=== PATIENT | female | born 1960 | race Caucasian/White ===

== ENCOUNTER 2019-11-09 10:29 | Outpatient (CLI) | payer OTHER, SELFPAY ==
[2019-11-09 11:07] LABS: Hematocrit 38.5 % (37.0-47.0); Hemoglobin 12.6 g/dL (12.0-15.0); Mean Corpuscular HGB Conc 32.7 g/dl (32-36); Mean Corpuscular Hemoglobin 30.7 pg (26-34); Mean Corpuscular Volume 93.7 fl (80-100); Mean Platelet Volume 8.8 fl (7.4-10.4); Platelet Count Result 300 k/mm3 (150-375); Red Blood Count 4.11 M/mm3 (4.2-5.4); Red Cell Distribution Width 12.1 % (11.5-14.5); White Blood Count 3.3 K/mm3 (4.5-10.0)
[2019-11-09 11:20] LABS: Alanine Aminotransferase 34 U/L (4-35); Alkaline Phosphatase 71 U/L (38-126); Aspartate Amino Transferase 34 U/L (14-36); Bilirubin,Total 0.6 mg/dL (0.2-1.3); Blood Urea Nitrogen 14 mg/dL (7-17); Calcium 9.1 mg/dL (8.4-10.2); Carbon Dioxide 30 mmol/L (22-30); Chloride 96 mmol/L (98-107); Cholesterol 165 mg/dL (0-200); Estimated Glomerular Filt Rate > 60; Glucose 139 mg/dL (65-105); HDL Direct 57 mg/dL; Potassium 4.5 mmol/L (3.4-5.0); Sodium 134 mmol/L (137-145); Triglycerides 59 mg/dL (<150)
[2019-11-09 11:37] LABS: LDL Cholesterol Direct 90 mg/dL
[2019-11-09 11:50] LABS: Free T4 Free Thyroxine 1.34 ng/mL (0.78-2.19); Vitamin D 25 Hydroxy 89.2 ng/mL
[2019-11-09 11:53] LABS: Thyroid Stimulating Hormone 0.153 uIU/mL (0.465-4.680)
[2019-11-09 12:24] LABS: Creatinine Urine 46.9 mg/dL
[2019-11-09 12:28] LABS: Folic Acid 16.3 ng/mL (2.76->20)
[2019-11-09 12:43] LABS: MALB Creatinine Ratio < 12.8 mg/g (0-30); Microalbumin Urine Random < 6.0 mg/L (0-16.7)
== END 2019-11-09 10:30 | disposition home or self-care (01) ==
PROVIDERS: PCP Internal Medicine; Visit Provider Internal Medicine
DX: R53.83 Other fatigue (principal); E11.9 Type 2 diabetes mellitus without complications; E03.9 Hypothyroidism, unspecified; E55.9 Vitamin D deficiency, unspecified
CPT/HCPCS: 36415; 80053; 80061; 82043; 82306; 82607; 82746; 84439; 84443; 85027

== ENCOUNTER 2019-11-28 14:59 | Outpatient (CLI) | payer OTHER, SELFPAY ==
--- NOTE | ~2019-11-28 | MM_ITS ---
EXAMINATION: MM screening ladonna RT w flaquito HISTORY: Screening mammogram TECHNIQUE: Rotated lateral cc view of right breast. Craniocaudal and mediolateral oblique 3-D tomosyn thesis images were obtained and synthetic 2-D images were generated. CAD analysis was submitted and i nterpreted. COMPARISON: 11/22/2018, 10/01/2015, 08/17/2013 right digital screening mammogram examinations BREAST PARENCHYMAL COMPOSITION: The breasts are extremely dense, which lowers the sensitivity of mamm ography. FINDINGS: There is a biopsy marker in the lower inner quadrant of the right breast; history of prior benign right breast biopsy. History of left mastectomy in 2002 for left breast cancer. Right breast reduction surgery in 2002. There is suggestion of architectural distortion in the outer right breast on rotated lateral cranioca udal view at mid breast depth. Diagnostic right mammogram is recommended, with ultrasound. Otherwise there is no evidence of suspicious mass, calcification, or architectural distortion to sugg est malignancy in either breast. There has been no other suspicious interval change of the right [address]. IMPRESSION: 1. Architectural distortion suggested in the outer right breast at mid depth on rotated lateral cc vi ew. 2. Diagnostic right mammogram and right breast ultrasound examination are recommended. BI-RADS Category 0: Incomplete: Needs additional imaging evaluation. Reviewed, dictated and finalized at location A. IMPRESSION: 1. Architectural distortion suggested in the outer right breast at mid depth on rotated lateral cc view. 2. Diagnostic right mammogram and right breast ultrasound examination are recom mended. BI-RADS Category 0: Incomplete: Needs additional imaging evaluation.
== END 2019-11-28 15:00 | disposition home or self-care (01) ==
LOC: ANHIMG 15:02
PROVIDERS: PCP Internal Medicine; Visit Provider Nurse Practitioner
DX: Z12.31 Encounter for screening mammogram for malignant neoplasm of breast (principal); R92.8 Other abnormal and inconclusive findings on diagnostic imaging of breast
CPT/HCPCS: 77063; 77067

== ENCOUNTER 2019-12-05 11:50 | Outpatient (CLI) | payer OTHER, SELFPAY ==
--- NOTE | ~2019-12-05 | MMUS_ITS ---
EXAMINATION: MM diagnostic mammo unilat RT, US breast RT limited HISTORY: Possible architectural distortion of the right breast on screening mammogram TECHNIQUE: Additional 3-D tomosynthesis images of the right breast were performed and synthetic 2-D i mages were generated. CAD analysis was submitted and interpreted. High resolution limited right breas t ultrasound was performed. COMPARISON: 11/28/2019, 11/12/2018, 10/01/2015, 08/17/2013 FINDINGS: MAMMOGRAPHIC FINDINGS: No persistent architectural distortion is identified with spot compression of the breast. There is a return to baseline fibroglandular appearance. ULTRASOUND: There is no evidence of focal abnormal solid or cystic lesion in the vicinity of the the mammographic finding in question. IMPRESSION: 1. No mammographic or sonographic evidence of malignancy. 2. Recommend routine screening mammography in one year. BI-RADS Category 1: Negative Reviewed, dictated and finalized at location A. IMPRESSION: 1. No mammographic or sonographic evidence of malignancy. 2. Recommend routine screening mammography in one year. BI-RADS Category 1: Negative
== END 2019-12-05 11:51 | disposition home or self-care (01) ==
PROVIDERS: PCP Internal Medicine; Visit Provider Obstetrics & Gynecology Gynecology
DX: R92.8 Other abnormal and inconclusive findings on diagnostic imaging of breast (principal)
CPT/HCPCS: 76642; 77065

== ENCOUNTER 2020-01-09 15:09 | Outpatient (CLI) | payer OTHER, SELFPAY ==
[2020-01-09 16:27] LABS: Calcium 9.6 mg/dL (8.4-10.2)
[2020-01-09 16:32] LABS: Creatinine Urine 28.8 mg/dL
[2020-01-09 16:57] LABS: Thyroid Stimulating Hormone 0.203 uIU/mL (0.465-4.680)
[2020-01-09 17:15] LABS: Free T4 Free Thyroxine 1.58 ng/mL (0.78-2.19)
[2020-01-13 13:50] LABS: Parathyroid Intact 45 pg/mL (14-64)
== END 2020-01-09 15:10 | disposition home or self-care (01) ==
PROVIDERS: PCP Internal Medicine; Visit Provider Internal Medicine Endocrinology, Diabetes & Metabolism
DX: E03.9 Hypothyroidism, unspecified (principal); E10.65 Type 1 diabetes mellitus with hyperglycemia; R79.89 Other specified abnormal findings of blood chemistry
CPT/HCPCS: 36415; 82310; 82570; 83970; 84439; 84443

== ENCOUNTER 2020-01-12 15:01 | Outpatient (CLI) | payer OTHER, SELFPAY ==
[2020-01-12 17:26] LABS: Parathyroid Intact 23.9 pg/mL (7.5-53.5)
[2020-01-16 03:23] LABS: Ionized Calcium 5.4 mg/dL (4.8-5.6)
[2020-01-17 12:09] LABS: Total Volume 4500 mL; Urine Calcium 7.6 mg/dL
== END 2020-01-12 15:02 | disposition home or self-care (01) ==
LOC: ANHLAB 02-03 15:01
PROVIDERS: PCP Internal Medicine; Visit Provider Internal Medicine Endocrinology, Diabetes & Metabolism
DX: R79.89 Other specified abnormal findings of blood chemistry (principal); E03.9 Hypothyroidism, unspecified; E10.65 Type 1 diabetes mellitus with hyperglycemia; E83.52 Hypercalcemia; Z85.3 Personal history of malignant neoplasm of breast; E55.9 Vitamin D deficiency, unspecified
CPT/HCPCS: 36415; 82330; 82340; 83970

== ENCOUNTER 2020-01-18 12:48 | Outpatient (CLI) | payer OTHER, SELFPAY ==
--- NOTE | ~2020-01-18 | DEXA_ITS ---
Bone Density Report Name: Rosa Elena Mcdowell Age: 59 Sex: Female Ethnicity: White Date of : 1960 Indication: postmenopausal osteoporosis; monitoring treatment; height loss; prior fracture; cancer; Referring Provider: Abigail Castorena Study: Bone densitometry was performed. Exam Date: January 18, 2020 Accession number: [id number] Bone Density: Region BMD T-score Z-score Classification AP Spine (L1-L4) 0.663 -3.5 -2.2 Osteoporosis Femoral Neck (Left) 0.622 -2.0 -0.8 Osteopenia Total Hip (Left) 0.710 -1.9 -1.0 Osteopenia Total Hip Bilateral Avg 0.706 -2.0 -1.1 Osteopenia Femoral Neck (Right) 0.625 -2.0 -0.8 Osteopenia Total Hip (Right) 0.701 -2.0 -1.1 Osteopenia World Health Organization criteria for BMD impression classify patients as: Normal (T-score at or above -1.0), Osteopenia (T-score between -1.0 and -2.5), or Osteoporosis (T-score at or below -2.5). 10-year Fracture Risk: FRAX not reported because: Some T-score for Spine Total or Hip Total or Femoral Neck at or below -2.5 Treated for osteoporosis Previous Exams: Region Exam Age BMD T-score BMD Change BMD Change Date g/cm2 vs Baseline vs Previous AP Spine(L1-L4) 01/18/2020 59 0.663 -3.5 -0.097(-12.8%) -0.054(-7.5%)* 11/12/2018 58 0.717 -3.0 -0.043(-5.6%)# -0.095(-11.7%) 10/01/2015 55 0.811 -2.1 0.052(6.8%)# 0.009(1.1%)# 07/21/2012 51 0.803 -2.2 0.043(5.7%)# -0.036(-4.2%)# 06/04/2011 50 0.838 -1.9 0.079(10.4%)* 0.079(10.4%)* 01/12/2008 47 0.760 -2.6 Total Hip(Left) 01/18/2020 59 0.710 -1.9 0.009(1.3%)# 0.000(-0.1%) 11/12/2018 58 0.711 -1.9 0.009(1.3%)# -0.033(-4.5%)* 10/01/2015 55 0.744 -1.6 0.043(6.1%)# 0.004(0.5%)# 07/21/2012 51 0.740 -1.7 0.039(5.5%)# -0.011(-1.5%)# 06/04/2011 50 0.752 -1.6 0.050(7.2%)* 0.050(7.2%)* 01/12/2008 47 0.701 -2.0 Total Hip(Right) 01/18/2020 59 0.701 -2.0 -0.002(-0.3%)# -0.039(-5.3%)* 11/12/2018 58 0.740 -1.7 0.037(5.3%)# -0.020(-2.7%) 10/01/2015 55 0.761 -1.5 0.058(8.2%)# 0.038(5.2%)# 07/21/2012 51 0.723 -1.8 0.020(2.8%)# -0.011(-1.4%)# 06/04/2011 50 0.733 -1.7 0.030(4.3%)* 0.030(4.3%)* 01/12/2008 47 0.703 -2.0 *Denotes significance at 95% confidence level, LSC for AP Spine = 0.022 g/cm2, LSC for Total Hip = 0.027 g/cm2 Clinical Information Provided by Patient: Has had a low trauma fracture Is being treated for osteoporosis Has used the following medications: Reclast (i.e. zoledronate
== END 2020-01-18 12:49 | disposition home or self-care (01) ==
LOC: ANHIMG 12:49
PROVIDERS: PCP Internal Medicine; Visit Provider Internal Medicine Endocrinology, Diabetes & Metabolism
DX: M81.0 Age-related osteoporosis without current pathological fracture (principal); R79.89 Other specified abnormal findings of blood chemistry; M85.89 Other specified disorders of bone density and structure, multiple sites
CPT/HCPCS: 77080

== ENCOUNTER 2020-04-23 08:55 | Outpatient (CLI) | payer OTHER, SELFPAY ==
[2020-04-23 09:41] LABS: Anion Gap 5 mmol/L (8-16); Blood Urea Nitrogen 14 mg/dL (7-17); Calcium 9.1 mg/dL (8.4-10.2); Carbon Dioxide 29 mmol/L (22-30); Chloride 101 mmol/L (98-107); Estimated Glomerular Filt Rate > 60; Glucose 176 mg/dL (65-105); Phosphorus 3.4 mg/dL (2.5-4.5); Potassium 4.3 mmol/L (3.4-5.0); Sodium 135 mmol/L (137-145)
[2020-04-23 09:53] LABS: Parathyroid Intact 78.4 pg/mL (7.5-53.5)
[2020-04-23 10:20] LABS: Vitamin D 25 Hydroxy 55.3 ng/mL
[2020-04-26 07:00] LABS: Collagen Type I C-Telopeptide 333 pg/mL (***); Osteocalcin 16 ng/mL (8-32)
[2020-04-26 07:01] LABS: Creatinine, Random Urine 110 mg/dL (20-275); N-Telopeptide (NTx) 36 (***)
== END 2020-04-23 08:56 | disposition home or self-care (01) ==
PROVIDERS: PCP Internal Medicine; Visit Provider Internal Medicine Endocrinology, Diabetes & Metabolism
DX: E03.9 Hypothyroidism, unspecified (principal); E10.65 Type 1 diabetes mellitus with hyperglycemia; E55.9 Vitamin D deficiency, unspecified; E83.52 Hypercalcemia; R79.89 Other specified abnormal findings of blood chemistry; Z87.898 Personal history of other specified conditions
CPT/HCPCS: 36415; 80069; 82306; 82523; 82570; 83937; 83970; 84439; 84443

== ENCOUNTER 2020-04-24 13:01 | Outpatient (CLI) | payer OTHER, SELFPAY ==
[2020-04-24 13:54] LABS: Creatinine 24 Hour Urine 0.5 gm/24 (0.8-1.8); Creatinine Urine 25.7 mg/dL; Total Volume 24 Hour Urine 2250 ml
[2020-04-27 20:42] LABS: Total Volume 2250 mL; Urine Calcium 2.8 mg/dL
== END 2020-04-24 13:02 | disposition home or self-care (01) ==
PROVIDERS: PCP Internal Medicine; Visit Provider Internal Medicine Endocrinology, Diabetes & Metabolism
DX: E55.9 Vitamin D deficiency, unspecified (principal); M81.0 Age-related osteoporosis without current pathological fracture; R79.89 Other specified abnormal findings of blood chemistry
CPT/HCPCS: 81050; 82340; 82570

== ENCOUNTER 2020-05-09 09:15 | Outpatient (CLI) | payer OTHER, SELFPAY ==
--- NOTE | ~2020-05-09 | NM_ITS ---
EXAMINATION: NM parathyroid w imaging DATE: 05/09/2020 12:58 INDICATION: Hyperparathyroidism. TECHNIQUE: 18.8 mCi Tc99m sestamibi was administered intravenously. Anterior images of the neck were obtained immediately and at 2 hours. SPECT images of the neck were obtained. COMPARISON: None. FINDINGS: There is no focus of persistent activity in the area of the thyroid or mediastinum to sugge st parathyroid adenoma. IMPRESSION: 1. No evidence of a parathyroid adenoma. Reviewed, dictated and finalized at location A.
== END 2020-05-09 09:16 | disposition home or self-care (01) ==
LOC: ANHIMG 09:17
PROVIDERS: PCP Internal Medicine Endocrinology, Diabetes & Metabolism; Visit Provider Internal Medicine Endocrinology, Diabetes & Metabolism
DX: M81.0 Age-related osteoporosis without current pathological fracture (principal); R79.89 Other specified abnormal findings of blood chemistry
CPT/HCPCS: 78070; A9500

== ENCOUNTER 2020-06-01 13:25 | Outpatient (CLI) | payer OTHER, SELFPAY ==
[2020-06-01 14:17] LABS: Anion Gap 4 mmol/L (8-16); Blood Urea Nitrogen 11 mg/dL (7-17); Calcium 9.5 mg/dL (8.4-10.2); Carbon Dioxide 29 mmol/L (22-30); Chloride 101 mmol/L (98-107); Estimated Glomerular Filt Rate > 60; Glucose 244 mg/dL (65-105); Potassium 4.4 mmol/L (3.4-5.0); Sodium 134 mmol/L (137-145)
[2020-06-01 15:26] LABS: Free T4 Free Thyroxine 1.08 ng/mL (0.78-2.19)
[2020-06-06 06:59] LABS: Triiodothyronine T3 Free 2.7 pg/mL (2.3-4.2)
== END 2020-06-01 13:26 | disposition home or self-care (01) ==
LOC: ANHLAB 13:28
PROVIDERS: PCP Internal Medicine; Visit Provider Internal Medicine Endocrinology, Diabetes & Metabolism
DX: E03.9 Hypothyroidism, unspecified (principal); E04.9 Nontoxic goiter, unspecified; M81.0 Age-related osteoporosis without current pathological fracture
CPT/HCPCS: 36415; 80048; 84439; 84443; 84481

== ENCOUNTER 2020-09-04 09:16 | Outpatient (CLI) | payer OTHER, SELFPAY ==
[2020-09-04 09:59] LABS: Alanine Aminotransferase 31 U/L (4-35); Albumin Level 3.7 g/dL (3.5-5.1); Alkaline Phosphatase 54 U/L (38-126); Anion Gap 4 mmol/L (8-16); Aspartate Amino Transferase 34 U/L (14-36); Bilirubin,Total 0.5 mg/dL (0.2-1.3); Blood Urea Nitrogen 12 mg/dL (7-17); Calcium 9.6 mg/dL (8.4-10.2); Carbon Dioxide 33 mmol/L (22-30); Chloride 100 mmol/L (98-107); Cholesterol 167 mg/dL (0-200); Estimated Glomerular Filt Rate > 60; Glucose 98 mg/dL (65-105); HDL Direct 61 mg/dL; Potassium 4.1 mmol/L (3.4-5.0); Sodium 137 mmol/L (137-145); Triglycerides 64 mg/dL (<150)
[2020-09-04 10:10] LABS: LDL Cholesterol Direct 88 mg/dL
[2020-09-04 10:28] LABS: Free T4 Free Thyroxine 1.47 ng/mL (0.78-2.19)
[2020-09-04 10:30] LABS: Thyroid Stimulating Hormone 0.203 uIU/mL (0.465-4.680)
== END 2020-09-04 09:17 | disposition home or self-care (01) ==
PROVIDERS: PCP Internal Medicine; Referring Provider Internal Medicine Endocrinology, Diabetes & Metabolism; Visit Provider Internal Medicine
DX: E03.9 Hypothyroidism, unspecified (principal); E10.65 Type 1 diabetes mellitus with hyperglycemia
CPT/HCPCS: 36415; 80053; 80061; 84439; 84443

== ENCOUNTER 2021-01-18 09:20 | Outpatient (CLI) | payer OTHER, SELFPAY ==
[2021-01-18 10:20] LABS: Creatinine Urine 39.6 mg/dL
[2021-01-18 10:21] LABS: Albumin Level 4.2 g/dL (3.5-5.1); Anion Gap 2 mmol/L (8-16); Blood Urea Nitrogen 8 mg/dL (7-17); Calcium 10.4 mg/dL (8.4-10.2); Carbon Dioxide 32 mmol/L (22-30); Chloride 101 mmol/L (98-107); Estimated Glomerular Filt Rate > 60; Glucose 148 mg/dL (65-105); HDL Direct 72 mg/dL; Potassium 4.2 mmol/L (3.4-5.0); Sodium 135 mmol/L (137-145)
[2021-01-18 10:33] LABS: LDL Cholesterol Direct 76 mg/dL
[2021-01-18 10:36] LABS: Free T4 Free Thyroxine 1.52 ng/mL (0.78-2.19); Vitamin D 25 Hydroxy 72.2 ng/mL
[2021-01-18 10:44] LABS: MALB Creatinine Ratio < 15.2 mg/g (0-30); Microalbumin Urine Random < 6.0 mg/L (0-16.7)
[2021-01-18 10:45] LABS: Parathyroid Intact 59.3 pg/mL (7.5-53.5)
[2021-01-18 10:52] LABS: Thyroid Stimulating Hormone 0.041 uIU/mL (0.465-4.680); Total Triiodothyronine (T3) 1.43 NG/ML (0.97-1.69)
[2021-01-18 11:27] LABS: Phosphorus 3.4 mg/dL (2.5-4.5)
== END 2021-01-18 09:21 | disposition home or self-care (01) ==
PROVIDERS: PCP Internal Medicine; Visit Provider Internal Medicine Endocrinology, Diabetes & Metabolism
DX: E10.65 Type 1 diabetes mellitus with hyperglycemia (principal); E03.9 Hypothyroidism, unspecified; M81.0 Age-related osteoporosis without current pathological fracture
CPT/HCPCS: 36415; 80069; 82043; 82306; 83718; 83721; 83970; 84439; 84443; 84480

== ENCOUNTER 2021-03-22 12:50 | Outpatient (CLI) | payer OTHER, SELFPAY ==
[2021-03-22 14:16] LABS: Thyroid Stimulating Hormone < 0.015 uIU/mL (0.465-4.680); Total Triiodothyronine (T3) 1.22 NG/ML (0.97-1.69)
[2021-03-22 14:22] LABS: Free T4 Free Thyroxine 1.56 ng/mL (0.78-2.19)
== END 2021-03-22 12:51 | disposition home or self-care (01) ==
LOC: ANHLAB 12:53
PROVIDERS: PCP Internal Medicine; Visit Provider Internal Medicine Endocrinology, Diabetes & Metabolism
DX: E03.9 Hypothyroidism, unspecified (principal); E10.65 Type 1 diabetes mellitus with hyperglycemia; M81.0 Age-related osteoporosis without current pathological fracture
CPT/HCPCS: 36415; 84439; 84443; 84480

== ENCOUNTER 2021-05-24 10:12 | Outpatient (CLI) | payer OTHER, SELFPAY ==
[2021-05-24 11:28] LABS: Albumin Level 4.2 g/dL (3.5-5.1); Anion Gap 3 mmol/L (8-16); Blood Urea Nitrogen 17 mg/dL (7-17); Calcium 9.9 mg/dL (8.4-10.2); Carbon Dioxide 31 mmol/L (22-30); Chloride 102 mmol/L (98-107); Estimated Glomerular Filt Rate > 60; Glucose 127 mg/dL (65-110); Phosphorus 3.5 mg/dL (2.5-4.5); Potassium 4.5 mmol/L (3.4-5.0); Sodium 136 mmol/L (137-145)
[2021-05-24 11:59] LABS: Parathyroid Intact 60.2 pg/mL (7.5-53.5)
[2021-05-24 12:22] LABS: Free T4 Free Thyroxine 0.64 ng/mL (0.78-2.19)
[2021-05-27 21:36] LABS: Creatinine, Random Urine 24 mg/dL (20-275); N-Telopeptide (NTx) 18 (***)
[2021-05-29 12:36] LABS: Osteocalcin 12 ng/mL (8-32)
== END 2021-05-24 10:13 | disposition home or self-care (01) ==
PROVIDERS: PCP Internal Medicine; Visit Provider Internal Medicine Endocrinology, Diabetes & Metabolism
DX: E10.65 Type 1 diabetes mellitus with hyperglycemia (principal); M81.0 Age-related osteoporosis without current pathological fracture; E03.9 Hypothyroidism, unspecified
CPT/HCPCS: 36415; 80069; 82306; 82523; 82570; 83937; 83970; 84439; 84443

== ENCOUNTER → 2021-07-30 13:22 | Outpatient (CLI) | payer OTHER, SELFPAY ==
--- NOTE | ~2021-07-30 | DEXA_ITS ---
Bone Density Report Name: INDIRA ALAS Age: 61 Sex: Female Ethnicity: White Date of : 1960 Indication: postmenopausal; screening for osteoporosis; height loss; Referring Provider: Abigail Castorena Study: Bone densitometry was performed. Exam Date: July 30, 2021 Accession number: [id number] Bone Density: Region BMD T-score Z-score Classification AP Spine (L1-L4) 0.749 -2.7 -1.3 Osteoporosis Femoral Neck (Left) 0.616 -2.1 -0.8 Osteopenia Total Hip (Left) 0.737 -1.7 -0.7 Osteopenia Femoral Neck (Right) 0.638 -1.9 -0.6 Osteopenia Total Hip (Right) 0.733 -1.7 -0.8 Osteopenia Total Hip Mean 0.735 -1.7 -0.8 Osteopenia World Health Organization criteria for BMD impression classify patients as: Normal (T-score at or above -1.0), Osteopenia (T-score between -1.0 and -2.5), or Osteoporosis (T-score at or below -2.5). 10-year Fracture Risk: FRAX not reported because: Some T-score for Spine Total or Hip Total or Femoral Neck at or below -2.5 Clinical Information Provided by Patient: Has used the following medications: Vitamin D, Calcium Patient maximum height was 65.75 Menopause Age: 56 Drinks caffeinated beverages Onset of menses at age 13 Number of children 4 Impression: The patient has osteoporosis, based on the Total Spine T-score. Discussion: INCREASED RISK OF FRACTURE. BONE DENSITY IS UNDESIRABLY LOW AT ONE OR MORE SKELETAL SITES, CONSISTENT WITH POSTMENOPAUSAL OSTEOPOROSIS. This patient's lowest T-score meets the World Health Organization's (WHO) criteria for osteoporosis at one or more sites (T-score -2.5 or below). In untreated patients, the risk of osteoporotic fracture increases approximately two-fold for each 1.0 SD decrease in T-score. Low bone density is not the only risk factor for fracture; also consider factors such as patient's age, frailty or poor health, risk of falling, risk of injury, previous osteoporotic fracture, family history of osteoporosis, cigarette smoking, low body weight, etc. Not everyone with low bone mineral density has osteoporosis; osteomalacia and other metabolic bone disorders should also be considered. Patients who have osteoporosis should be evaluated for specific diseases and conditions (secondary causes) that may cause or contribute to bone loss. The [place] [employer] Endocrinologists (AACE) and National Osteoporosis Foundation (NOF) recommend pharmacologic intervention for all postmenopausal women whose T-score is in this range. The patient should follow a healthful lifestyle (good nutrition with adequate calcium and vitamin D, and appropriate weight-bearing exercise). Follow-Up: Consider a repeat BMD and Vertebral Fracture Assessment (VFA) exam in 2 years or sooner if medically necessary, to reassess this patient's status. Reported by: [facility]
--- NOTE | ~2021-07-30 | MM_ITS ---
EXAMINATION: MM screening ladonna RT w flaquito HISTORY: Screening right mammogram, history of left mastectomy, family history of breast cancer in he r sister. TECHNIQUE: Craniocaudal and mediolateral oblique 3-D tomosynthesis images were obtained and synthetic 2-D images were generated. CAD analysis was submitted and interpreted. COMPARISON: 12/05/2019, 11/28/2019, 11/12/2018, 10/01/2015 BREAST PARENCHYMAL COMPOSITION: The breast is extremely dense, which lowers the sensitivity of mammog denise. FINDINGS: There is no evidence of suspicious mass, calcification, or architectural distortion to sugg est malignancy. There has been no suspicious interval change. IMPRESSION: 1. No mammographic evidence of malignancy. 2. Recommend routine screening mammography in one year. BI-RADS Category 1: Negative Reviewed, dictated and finalized at location A. CONDITIONING MANAGER
== END ==
PROVIDERS: PCP Internal Medicine; Visit Provider Internal Medicine Endocrinology, Diabetes & Metabolism
DX: Z12.31 Encounter for screening mammogram for malignant neoplasm of breast (principal); M81.0 Age-related osteoporosis without current pathological fracture; M85.852 Other specified disorders of bone density and structure, left thigh; M85.851 Other specified disorders of bone density and structure, right thigh
CPT/HCPCS: 77063; 77067; 77080

== ENCOUNTER 2021-08-08 11:41 | Outpatient (CLI) | payer OTHER, SELFPAY ==
[2021-08-08 12:34] LABS: Free T4 Free Thyroxine 0.79 ng/mL (0.78-2.19)
== END 2021-08-08 11:42 | disposition home or self-care (01) ==
LOC: ANHLAB 11:44
PROVIDERS: PCP Internal Medicine; Visit Provider Internal Medicine Endocrinology, Diabetes & Metabolism
DX: E03.9 Hypothyroidism, unspecified (principal); E10.65 Type 1 diabetes mellitus with hyperglycemia; M81.0 Age-related osteoporosis without current pathological fracture; R79.89 Other specified abnormal findings of blood chemistry
CPT/HCPCS: 36415; 84439; 84443

== ENCOUNTER 2022-12-26 07:44 | Outpatient (CLI) | payer BC, SELFPAY ==
--- NOTE | ~2022-12-26 | MM_ITS ---
EXAMINATION: MM screening ladonna RT w flaquito HISTORY: Screening right mammogram history of left mastectomy TECHNIQUE: Craniocaudal and mediolateral oblique 3-D tomosynthesis images were obtained and synthetic 2-D images were generated. CAD analysis was submitted and interpreted. COMPARISON: 07/30/2021, 12/05/2019, 11/28/2019, 11/22/2018 BREAST PARENCHYMAL COMPOSITION: The breast is extremely dense, which lowers the sensitivity of mammog denise. FINDINGS: No suspicious mass, calcification, or architectural distortion are identified to suggest ma lignancy. There has been no suspicious interval change.. IMPRESSION: 1. No mammographic evidence of malignancy. 2. Recommend routine screening mammography in one year. BI-RADS Category 1: Negative Reviewed, dictated and finalized at location A.
== END 2022-12-26 07:45 | disposition home or self-care (01) ==
PROVIDERS: PCP Internal Medicine; Visit Provider Nurse Practitioner
DX: Z12.31 Encounter for screening mammogram for malignant neoplasm of breast (principal)
CPT/HCPCS: 77063; 77067

== ENCOUNTER → 2023-11-06 11:04 | Outpatient (CLI) | payer BC, SELFPAY ==
--- NOTE | ~2023-11-06 | DEXA_ITS ---
Bone Density Report Name: INDIRA ALAS Age: 63 Sex: Female Ethnicity: White Date of : 1960 Indication: postmenopausal osteoporosis; height loss; secondary osteoporosis; Referring Provider: Abigail Castorena Study: Bone densitometry was performed. Exam Date: November 06, 2023 Accession number: [id number] Bone Density: Region BMD T-score Z-score Classification AP Spine (L1-L4) 0.709 -3.1 -1.5 Osteoporosis Femoral Neck (Left) 0.612 -2.1 -0.8 Osteopenia Total Hip (Left) 0.731 -1.7 -0.7 Osteopenia Femoral Neck (Right) 0.609 -2.2 -0.8 Osteopenia Total Hip (Right) 0.680 -2.1 -1.1 Osteopenia Total Hip Mean 0.706 -1.9 -0.9 Osteopenia World Health Organization criteria for BMD impression classify patients as: Normal (T-score at or above -1.0), Osteopenia (T-score between -1.0 and -2.5), or Osteoporosis (T-score at or below -2.5). 10-year Fracture Risk: FRAX not reported because: Some T-score for Spine Total or Hip Total or Femoral Neck at or below -2.5 Previous Exams: Region Exam Age BMD T-score BMD Change BMD Change Date g/cm2 vs Baseline vs Previous AP Spine(L1-L4) 11/06/2023 63 0.709 -3.1 -0.040* -0.040* 07/30/2021 61 0.749 -2.7 Total Hip(Left) 11/06/2023 63 0.731 -1.7 -0.007 -0.007 07/30/2021 61 0.737 -1.7 Total Hip(Right) 11/06/2023 63 0.680 -2.1 -0.054* -0.054* 07/30/2021 61 0.733 -1.7 *Denotes significance at 95% confidence level, LSC for AP Spine = 0.022 g/cm2, LSC for Total Hip = 0.027 g/cm2 Clinical Information Provided by Patient: Has secondary osteoporosis Has used the following medications: Vitamin D Patient maximum height was 65.75 Menopause Age: 56 Drinks caffeinated beverages Onset of menses at age 13 Number of children 4 Impression: The patient has osteoporosis, based on the Total Spine T-score. The BMD for the AP Spine(L1-L4) decreased, changing by -0.040 since the last DXA exam. The BMD for the Total Hip(Right) decreased, changing by -0.054 since the last DXA exam. Discussion: INCREASED RISK OF FRACTURE. BONE DENSITY IS UNDESIRABLY LOW AT ONE OR MORE SKELETAL SITES, CONSISTENT WITH POSTMENOPAUSAL OSTEOPOROSIS. This patient's lowest T-score meets the World Health Organization's (WHO) criteria for osteoporosis at one or more sites (T-score -2.5 or below). In untreated patients, the risk of osteoporotic fracture increases approximately two-fold for each 1.0 SD decrea
== END ==
PROVIDERS: PCP Internal Medicine; Visit Provider Internal Medicine Endocrinology, Diabetes & Metabolism
DX: M81.0 Age-related osteoporosis without current pathological fracture (principal); M85.852 Other specified disorders of bone density and structure, left thigh; M85.851 Other specified disorders of bone density and structure, right thigh
CPT/HCPCS: 77080

== ENCOUNTER 2024-01-13 14:49 | Outpatient (CLI) | payer BC, SELFPAY ==
--- NOTE | ~2024-01-13 | XR_ITS ---
EXAMINATION: XR hip RT min 2V DATE: 01/13/2024 15:06 INDICATION: Arthralgia. TECHNIQUE: 2 views of right hip were obtained. COMPARISON: Pelvis radiograph 05/01/2022 FINDINGS: Bone alignment is normal. No fracture. There is mild right hip osteoarthritis. Surgical cli ps overlie the pelvis. IMPRESSION: 1. Mild right hip osteoarthritis. Reviewed, dictated and finalized at location A.
== END 2024-01-13 14:50 ==
PROVIDERS: PCP Physician Assistant; Visit Provider Physician Assistant
DX: M16.11 Unilateral primary osteoarthritis, right hip (principal)
CPT/HCPCS: 73502

== ENCOUNTER 2024-02-03 11:38 | Outpatient (CLI) | payer BC, SELFPAY ==
--- NOTE | ~2024-02-03 | MM_ITS ---
EXAMINATION: MM screening ladonna RT w flaquito HISTORY: Screening. History of left mastectomy. TECHNIQUE: Craniocaudal and mediolateral oblique 3-D tomosynthesis images were obtained and synthetic 2-D images were generated. CAD analysis was submitted and interpreted. COMPARISON: Comparison to multiple prior studies sequentially, with oldest reviewed study dated 04/2019. BREAST PARENCHYMAL COMPOSITION: Dense: The breasts are extremely dense, which lowers the sensitivity of mammography. FINDINGS: There is no evidence of suspicious mass, calcification, or architectural distortion to sugg est malignancy in the right breast. There has been no suspicious interval change. IMPRESSION: 1. No mammographic evidence of malignancy. 2. Recommend routine screening mammography in one year. BI-RADS Category 1: Negative Reviewed, dictated and finalized at location B.
== END 2024-02-03 11:39 ==
LOC: MICIMG 11:41
PROVIDERS: PCP Internal Medicine; Visit Provider Nurse Practitioner
DX: Z12.31 Encounter for screening mammogram for malignant neoplasm of breast (principal)
CPT/HCPCS: 77063; 77067

== ENCOUNTER 2024-05-08 10:08 | Emergency (ER) | payer BC, SELFPAY ==
[2024-05-08 10:18] VITALS: BP 132/67; PULSE 56; RESP 18; TEMP 37; O2SAT 100
--- NOTE | 2024-05-08 10:57 | ED.ABDPAIN ---
HPI - Abdominal Pain General Chief Complaint: Abdominal Pain Stated Complaint: R SIDED ABD PAIN Time Seen by Provider: 05/08/24 10:30 Source: patient Mode of arrival: ambulatory Limitations: no limitations History of Present Illness HPI narrative: Rosa Elena is a 63-year-old female patient presenting to the clinic today with complaints of right-sided lower quadrant abdominal pain this began last night. She reports pain is a deep ache and rating it a 6/10 currently. Pain is constant. States she did have 3 bowel movements this morning and they were performed without blood in her stool. She reports some associated nausea without vomiting. No fever or chills. No known injury. Pain is worse when standing up and walking. Pain is better when she is drawn up in a position. Also feels better when she applies pressure with her hand to the right lower quadrant. Related Data Home Medications Medication Instructions Recorded Confirmed fexofenadine 180 mg tablet 180 mg PO DAILY 09/09/19 04/29/24 ([facility]) omega-3 fatty acids 1,250 mg 1,250 mg PO DAILY 09/09/19 03/23/24 capsule cholecalciferol (vitamin D3) 125 125 mcg PO DAILY 12/19/19 04/29/24 mcg (5,000 unit) capsule ascorbate calcium (vitamin C) 500 250 mg PO DAILY 05/02/20 04/29/24 mg tablet Biotin 02/26/22 03/23/24 eye health 02/26/22 03/23/24 4 life PO DAILY 04/29/23 04/29/24 Saccharomyces boulardii 250 mg 250 mg PO DAILY 04/29/23 04/29/24 capsule (Daily Probiotic (S. boulardii)) glutamine prime PO DAILY 04/29/23 04/29/24 potassium 95 mg tablet mg PO DAILY 04/29/23 04/29/24 vitamin K2 45 mcg capsule 45 mcg PO DAILY 04/29/23 04/29/24 COLLAGEN BYMOUTH 08/12/23 04/29/24 MCT PURE BYMOUTH 08/12/23 04/29/24 MILK THISTLE COMBO BYMOUTH 08/12/23 04/29/24 PRE/PRO BIOTIC BYMOUTH 08/12/23 04/29/24 RENUVO BYMOUTH 08/12/23 04/29/24 biotin 5,000 mcg chewable tablet mcg PO 08/12/23 04/29/24 Cercumin 1 cap PO DAILY 04/15/24 04/29/24 magnesium oxide 400 mg (241.3 mg 400 mg PO BID 04/15/24 04/29/24 magnesium) tablet (MagOx) vitamin B complex 1 tablet PO DAILY 04/15/24 04/29/24 Allergies Allergy/AdvReac Type Severity Reaction Status Date / Time glucagon Allergy Unknown vomiting Verified 05/08/24 10:32 and nausea, disorientation adhesive tape AdvReac Mild raw skin Verified 05/08/24 10:32 codeine AdvReac Mild upset Verified 05/08/24 10:32 stomach morphine AdvReac Mild upset Verified 05/08/24 10:32 stomach tramadol AdvReac Mild upset Verified 05/08/24 10:32 stomach anesthesia AdvReac Unknown Nausea and Uncoded 05/08/24 10:32 Vomiting Review of Systems Review of Systems: Pertinent positives per HPI. Patient denies any fever, chills, rash, headache, visual changes, dizziness, cough, runny nose, sore throat, shortness of breath, chest pain, palpitations, nausea, vomiting, diarrhea, constipation, abdominal pain, or any urinary issues. [facility] Past Medical History Medical History (Updated 05/08/24 @ 11:01 by Tarik Christensen APRN) Anxiety disorder, unspecified Arthritis BMI 28.0-28.9,adult Breast cancer Carpal tunnel syndrome Elevated blood pressure reading without diagnosis of hypertension Gastro-esophageal reflux disease without esophagitis Hypercalcemia Hyperparathyroidism Hypothyroidism (acquired) Obstructive sleep apnea Osteoporosis Other fatigue Pure hypercholesterolemia, unspecified Type 1 diabetes mellitus with hyperglycemia Vitamin D deficiency, unspecified Surgical History Surgical History History of breast surgery removal of cancer reconstructive surgery History of carpal tunnel release both wrist History of eye surgery Family History Family History Mother Hypertension Sibling Family history of malignant neoplasm of breast in first degree relative Family history of diabetes m
== END 2024-05-08 11:00 | disposition short-term general hospital (02) ==
PROVIDERS: Emergency Provider Nurse Practitioner Family; PCP Family Medicine
DX: R10.31 Right lower quadrant pain (principal); M19.90 Unspecified osteoarthritis, unspecified site; K21.9 Gastro-esophageal reflux disease without esophagitis; E21.3 Hyperparathyroidism, unspecified; E03.9 Hypothyroidism, unspecified; M81.0 Age-related osteoporosis without current pathological fracture; E78.00 Pure hypercholesterolemia, unspecified; E10.9 Type 1 diabetes mellitus without complications; E55.9 Vitamin D deficiency, unspecified; Z85.3 Personal history of malignant neoplasm of breast
CPT/HCPCS: 99212; G0463

== ENCOUNTER 2024-07-26 09:19 | Outpatient (CLI) | payer BC, SELFPAY ==
--- NOTE | ~2024-07-26 | NM_ITS ---
EXAMINATION: NM parathyroid w imaging DATE: 07/26/2024 14:19 INDICATION: Assess for parathyroid adenoma TECHNIQUE: 2.1 mCi Tc99m sestamibi (Cardiolite) was administered by intravenous route. Anterior image s of the neck were obtained at 10 minutes and 2 hours. COMPARISON: None. FINDINGS/IMPRESSION: There is no focus of persistent activity in the area of the thyroid or mediastinum to suggest parathy roid adenoma. Reviewed, dictated and finalized at location B. ESTATE AGENCY LICENSEE
== END 2024-07-26 09:20 | disposition home or self-care (01) ==
PROVIDERS: PCP Family Medicine; Visit Provider Internal Medicine Endocrinology, Diabetes & Metabolism
DX: R79.89 Other specified abnormal findings of blood chemistry (principal); R82.994 Hypercalciuria; M81.0 Age-related osteoporosis without current pathological fracture
CPT/HCPCS: 78070; A9500

== ENCOUNTER 2025-04-05 11:30 | Outpatient (CLI) | payer OTHER, SELFPAY ==
--- NOTE | ~2025-04-05 | MM_ITS ---
EXAMINATION: MM screening ladonna RT w flaquito HISTORY: Screening TECHNIQUE: Craniocaudal and mediolateral oblique 3-D tomosynthesis images were obtained and synthetic 2-D images were generated. CAD analysis was submitted and interpreted. COMPARISON: Comparison to multiple prior studies sequentially, with oldest reviewed study dated 04/2019. BREAST PARENCHYMAL COMPOSITION: Dense: The breasts are extremely dense, which lowers the sensitivity of mammography. FINDINGS: There is no evidence of suspicious mass, calcification, or architectural distortion to sugg est malignancy in either breast. There has been no suspicious interval change. IMPRESSION: 1. No mammographic evidence of malignancy. 2. Recommend routine screening mammography in one year. BI-RADS Category 1: Negative Reviewed, dictated and finalized at location B.
== END 2025-04-05 11:31 | disposition home or self-care (01) ==
LOC: MICIMG 11:31
PROVIDERS: PCP Family Medicine; Visit Provider Obstetrics & Gynecology Gynecology
DX: Z12.31 Encounter for screening mammogram for malignant neoplasm of breast (principal)
CPT/HCPCS: 77063; 77067

== ENCOUNTER 2025-06-01 10:00 | Outpatient (RCR) | payer OTHER, SELFPAY ==
--- NOTE | 2025-05-03 16:08 | STOPEVAL1 ---
Assessment and note entered by Connie Thorne, SANITATION SUPERINTENDENT Evaluation Information Assessment Status Evaluation Diagnosis R47.9 Onset Sep 2024 Subjective Information The patient is a 64 yr old female referred for speech services due to still experiencing difficulty with voice and swallowing following parathyroidectomy completed in Sep. The patient reports initially she required the use of thickener due to dysphagia post surgery and that she was unable to produce and vocalization. she is now on a regular diet and thin liquid but states she has to focus on her swallow for it to be successful. She reports her voice has returned to an audible level for simple conversation exchanges but that she has trouble reaching a loudness and pitch she could maintain previously. Reported Pain Level Pain Score 0: Self Report Assessment ST Clinical Summary The patient is a 64 yr old female referred for speech services due to still experiencing difficulty with voice and swallowing following parathyroidectomy completed in Sep. The patient reports initially she required the use of thickener due to dysphagia post surgery and that she was unable to produce and vocalization. she is now on a regular diet and thin liquid but states she has to focus on her swallow for it to be successful. She reports her voice has returned to an audible level for simple conversation exchanges but that she has trouble reaching the loudness and pitch she could maintain previously. The patient was administered a voice evaluation to assess Loudness, Pitch, Resonance, Respiration and Vocal Quality. the patient was able to maintain an optimal loudness of 70 decibels and pitch of 200 [address] for short responses but did show pitch breaks when producing glides on phonation or increased loudness to indicate stress in conversation. Speech services recommended 1x week x 10 visits to address vocal loudness/volume and pitch to establish prior speaking voice. Plan of Care Interventions Treatment of Voice ST Services Indicated Yes These treatments will address the objective and functional deficits as defined above. The patient will be advanced safely and appropriately in order for the patient to progress towards his/her prior level of function. Additional exercises will be introduced and as well as a comprehensive home exercise program upon discharge, if needed, ?to ensure carryover of functional gains achieved in the clinic. This treatment plan has been reviewed and agreement upon by the patient.
--- NOTE | 2025-05-03 16:10 | OPREHPOC ---
Outpatient Therapy Plan of Care This is a Multidisciplinary Plan of Care that may contain components documented by all disciplines (PT, OT, and ST.) ST Problem 1 ST Problem #[address] Goal 1 Goal / Goal Update The patient will participate in home programming to improve carry over/generalization of skills to the home environment. Target Visit [address] Problem #[address] Goal 1 Goal / Goal Update Voice 1. The patient will complete a HEP for optimal voicing with 100% compliance. 2. The patient will complete vocal adduction exercises with 90% accuracy 3. The patient will sustain optimal voicing, as measured by a voice meter for prolonged speech with adequate breath support 90% of the time. 4. The patient complete diaphragmatic breathing exercises 90%
--- NOTE | 2025-06-01 10:33 | STOPDC ---
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 The patient reports initially she required the use of thickener due to dysphagia post surgery and that she was unable to produce and vocalization. she is now on a regular diet and thin liquid but states she has to focus on her swallow for it to be successful. She reports her voice has returned to an audible level for simple conversation exchanges but that she has trouble reaching a loudness and pitch she could maintain previously. The patient was administered a voice evaluation to assess Loudness, Pitch, Resonance, Respiration and Vocal Quality. the patietn was able to maintain an optimal loudness of 70 decibels and pitch of 200 [address] for short responses but did show pitch breaks when producing glides on phonation or increased loudness to indicate stress in conversation. Speech services recommended 1x week x 10 visits to address vocal loudness/volume and pitch to establish prior speaking voice. 06/01/25 Discharge: Upon discharge the patient is able to maintain optimal voicing at 65-70 decibels in prolonged conversation exchange without breaks in pitch or breath support. She is able to sustain voicing at an optimal pitch for sustained /e/ /ah/, counting, and passage reading without pitch breaks. The patient is 100% compliant in completing her HEP daily to include cervical relaxation exercises, diaphragmatic breathing, easy vocal adduction, glides, and easy voice onset as needed. 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 Recommend discharge at this time with a continued HEP. Thank you for the consult. Plan of Care ST Services Indicated No
== END 2025-06-01 12:51 | disposition home or self-care (01) ==
LOC: ANHST 10:00
PROVIDERS: PCP Family Medicine; Visit Provider Internal Medicine Endocrinology, Diabetes & Metabolism
DX: R47.9 Unspecified speech disturbances (principal)
CPT/HCPCS: 92507; 92524